=== PATIENT | male | born 1950 | race Caucasian/White ===

== ENCOUNTER 2022-11-30 21:22 | Inpatient (IN) ==
[2022-11-30] MEDS ORDERED: NS 0.9% 1000 ml BAG 1,000 ML IV ONE (21:51)
[2022-11-30 23:33] LABS: ABS Lymphocytes 0.7 10^3/uL (1.0-4.8); ABS Monocytes 0.7 10^3/uL (0.0-1.1); ABS Neutrophils 7.4 10^3/uL (1.5-7.6); ABS Nucleated RBC 0.02 10^3/ul; Eosinophil % 0.5 %; Hematocrit 45.6 % (38-53); Hemoglobin 15.5 g/dL (13.2-16.3); Lymphocyte % 7.6 %; Mean Corpuscular Hemoglobin 30.7 pg (27-33); Mean Corpuscular Volume 90.2 fL (80-97); Mean Platelet Volume 7.9 fL (7.5-11.2); Nucleated Red Blood Cells % 0.2 /100 WBC (0.0-0.4); Platelet Count 212 10^3/uL (150-450); Red Blood Count 5.06 10^6/uL (4.06-5.63); Red Cell Distribution Width 13.8 % (12-17); White Blood Count 8.9 10^3/uL (3.6-10.2)
[2022-11-30 23:37] LABS: Albumin 3.7 g/dL (3.2-5.2); Calcium 8.6 mg/dL (8.6-10.3); Potassium 3.8 mmol/L (3.5-5.0); Total Bilirubin 1.5 mg/dL (0.2-1.0)
[2022-11-30 23:41] LABS: Urine Appearance Cloudy; Urine Bilirubin Negative (Negative); Urine Blood Negative (Negative); Urine Color Amber; Urine Glucose Negative (Negative); Urine Ketones 1+ (Negative); Urine Nitrite Negative (Negative); Urine Protein 2+(100 mg/dL) (Negative); Urine Specific Gravity 1.021 (1.002-1.030); Urine Urobilinogen Negative (Negative)
[2022-11-30 23:43] LABS: Albumin/Globulin Ratio 1.5 (1-3); C Reactive Protein 3.74 mg/L (<8.01); Creatinine, Serum 0.89 mg/dL (0.67-1.17); Globulin 2.4 g/dL (2-4); Total Protein 6.1 g/dL (6.4-8.9); eGFR CKD-EPI 91.1 (>60)
[2022-11-30 23:45] LABS: Urine Bacteria Absent (Absent); Urine Red Blood Cell 2+(6-10/hpf) (Absent); Urine White Blood Cell 1+(6-10/hpf) (Absent)
[2022-12-01] MEDS ORDERED: Metoclopramide 5 MG/ML VIAL (10 mg) IV SLOW PU ONE (00:49)
[2022-12-01] MEDS ORDERED: Sulfamethox/Trimethoprim DS TAB 800/160 mg PO ONE (00:50)
[2022-12-01] MEDS ORDERED: Iohexol 300 (CONTRAST) 10 ML SDV IV ONE (01:01)
[2022-12-01] MEDS ORDERED: Heparin 5000 UNITS/ML 1 mL VIAL SUBCUT ONE (05:05)
[2022-12-01] MEDS: NS 0.9% 1000 ml BAG 1,000 ML IV SCH ×2 (05:46→21:52)
[2022-12-01 06:01] LABS: ABS Basophils 0.1 10^3/uL (0.0-0.1); ABS Eosinophils 0.1 10^3/uL (0.0-0.5); ABS Lymphocytes 0.8 10^3/uL (1.0-4.8); ABS Monocytes 0.8 10^3/uL (0.0-1.1); ABS Neutrophils 7.9 10^3/uL (1.5-7.6); ABS Nucleated RBC 0.02 10^3/ul; Eosinophil % 0.6 %; Hemoglobin 15.9 g/dL (13.2-16.3); Lymphocyte % 8.6 %; Mean Corpuscular Hemoglobin 31.3 pg (27-33); Mean Corpuscular Hgb Conc 34.5 g/dL (31-36); Mean Corpuscular Volume 90.9 fL (80-97); Mean Platelet Volume 7.9 fL (7.5-11.2); Nucleated Red Blood Cells % 0.2 /100 WBC (0.0-0.4); Platelet Count 238 10^3/uL (150-450); Red Blood Count 5.06 10^6/uL (4.06-5.63); Red Cell Distribution Width 13.8 % (12-17); White Blood Count 9.6 10^3/uL (3.6-10.2)
[2022-12-01 06:18] LABS: Creatinine, Serum 0.89 mg/dL (0.67-1.17); eGFR CKD-EPI 91.1 (>60)
[2022-12-01 06:19] LABS: Albumin 3.8 g/dL (3.2-5.2); Albumin/Globulin Ratio 1.6 (1-3); Calcium 8.5 mg/dL (8.6-10.3); Creatinine, Serum 0.89 mg/dL (0.67-1.17); Globulin 2.4 g/dL (2-4); Potassium 3.8 mmol/L (3.5-5.0); Total Bilirubin 1.5 mg/dL (0.2-1.0); Total Protein 6.2 g/dL (6.4-8.9); eGFR CKD-EPI 91.1 (>60)
[2022-12-01] MEDS ORDERED: Diatrizoate Meg/Sod(CONTRAST) 30 ML ORAL.SOLN ONE (09:13)
[2022-12-01] MEDS: Heparin 5000 UNITS/ML 1 mL VIAL SUBCUT SCH (21:52)
[2022-12-01] MEDS ORDERED: Ondansetron 4 mg VIAL 2 MG/ML 2 ml VIAL IV PRN (23:29)
[2022-12-01] MEDS ORDERED: Prochlorperazine 5 mg/ml 2 ml VIAL (10 mg) IV PRN (23:29)
[2022-12-02] MEDS: Heparin 5000 UNITS/ML 1 mL VIAL SUBCUT SCH ×2 (05:05→14:59)
[2022-12-02] MEDS: NS 0.9% 1000 ml BAG 1,000 ML IV SCH (05:05)
[2022-12-02 06:19] LABS: ABS Eosinophils 0.2 10^3/uL (0.0-0.5); ABS Lymphocytes 0.9 10^3/uL (1.0-4.8); ABS Monocytes 0.8 10^3/uL (0.0-1.1); ABS Nucleated RBC 0.01 10^3/ul; Eosinophil % 2.2 %; Hematocrit 43.6 % (38-53); Hemoglobin 14.9 g/dL (13.2-16.3); Lymphocyte % 11.4 %; Mean Corpuscular Hemoglobin 31.1 pg (27-33); Mean Corpuscular Hgb Conc 34.2 g/dL (31-36); Mean Corpuscular Volume 91.1 fL (80-97); Mean Platelet Volume 8.3 fL (7.5-11.2); Nucleated Red Blood Cells % 0.1 /100 WBC (0.0-0.4); Platelet Count 202 10^3/uL (150-450); Red Blood Count 4.79 10^6/uL (4.06-5.63)
[2022-12-02 06:39] LABS: Calcium 8.2 mg/dL (8.6-10.3); Creatinine, Serum 0.92 mg/dL (0.67-1.17); eGFR CKD-EPI 88.4 (>60)
[2022-12-02 14:19] VITALS: BP 137/84
== END 2022-12-02 17:25 | disposition home or self-care (01) | DRG 390 ==
LOC: ED 21:22 → EDHOLD 21:22 → SUATTDRO 12-01 04:31 → SSU 12-01 18:34
PROVIDERS: ADMIT Student in an Organized Health Care Education/Training Program; ATTEND Internal Medicine